=== PATIENT | female | born 1965 | race Caucasian/White ===

== ENCOUNTER → 2019-12-07 13:54 | Outpatient (CLI) | payer BC, SELFPAY ==
--- NOTE | ~2019-12-07 | DEXA_ITS ---
Bone Density Report Name: Janae Meeks Age: 54 Sex: Female Ethnicity: White Date of : 1965 Indication: postmenopausal; screening for osteoporosis; parental hip fracture; Referring Provider: THAI CUENCA Study: Bone densitometry was performed. Exam Date: December 07, 2019 Accession number: [id number] Bone Density: Region BMD T-score Z-score Classification AP Spine (L1-L4) 1.140 0.8 1.9 Normal Femoral Neck (Left) 0.737 -1.0 0.0 Normal Total Hip (Left) 1.022 0.7 1.3 Normal Femoral Neck (Right) 0.746 -0.9 0.1 Normal Total Hip (Right) 1.001 0.5 1.2 Normal Total Hip Mean 1.012 0.6 1.3 Normal World Health Organization criteria for BMD impression classify patients as: Normal (T-score at or above -1.0), Osteopenia (T-score between -1.0 and -2.5), or Osteoporosis (T-score at or below -2.5). 10-year Fracture Risk: FRAX not reported because: All T-scores for Spine Total, Hip Total, Femoral Neck at or above -1.0 Clinical Information Provided by Patient: Parent has had a hip fracture Has used the following medications: Vitamin D, Calcium Patient maximum height was 63 Menopause Age: 49 Does not regularly consume dairy products Drinks caffeinated beverages Onset of menses at age 13 Number of children 1 Impression: The patient has normal bone mass. The patient has risk factors, including: parental hip fracture. Discussion: BONE DENSITY IS ABOVE THE MINIMUM DESIRABLE LEVEL AT ALL SKELETAL SITES TESTED. This patient?s bone mineral density is above the minimum desirable level (T-score -1.0 or better) at all sites measured. The patient should follow a healthful lifestyle (good nutrition with adequate calcium and vitamin D, and appropriate weight-bearing exercise). Follow-Up: Consider repeating this study in 5 years or sooner if there is some new clinical indication. Reported by: CARLINE on 12/07/2019 2:25:00 PM. Reviewed, dictated and finalized at location APricila MENENDEZ
--- NOTE | ~2019-12-07 | MM_ITS ---
EXAMINATION: MM screening robe BI w pilar HISTORY: Screening mammogram TECHNIQUE: Craniocaudal and mediolateral oblique 3-D tomosynthesis images were obtained and synthetic 2-D images were generated. CAD analysis was submitted and interpreted. COMPARISON: Comparison to multiple prior studies sequentially, with oldest reviewed study dated 11/2011. BREAST PARENCHYMAL COMPOSITION: There are scattered areas of fibroglandular density. FINDINGS: There is no evidence of suspicious mass, calcification, or architectural distortion to sugg est malignancy in either breast. There has been no suspicious interval change. IMPRESSION: 1. No mammographic evidence of malignancy. 2. Recommend routine screening mammography in one year. BI-RADS Category 1: Negative Reviewed, dictated and finalized at location A. EM SUPPORT DEVELOPER
== END ==
PROVIDERS: Visit Provider Obstetrics & Gynecology
DX: Z12.31 Encounter for screening mammogram for malignant neoplasm of breast (principal); Z13.820 Encounter for screening for osteoporosis
CPT/HCPCS: 77063; 77067; 77080

== ENCOUNTER → 2020-04-04 07:37 | Outpatient (CLI) | payer BC, SELFPAY ==
--- NOTE | ~2020-04-04 | US_ITS ---
EXAMINATION: US right upper quadrant DATE: 04/04/2020 08:13 INDICATION: Cirrhosis of the liver, bloating TECHNIQUE: Multiple grayscale and Doppler ultrasound images of the abdomen were obtained. COMPARISON: 07/02/2019 FINDINGS: The head and and body of the pancreas are normal. The pancreatic tail is obscured by bowel gas. The liver demonstrates increased echogenicity, heterogenous echotexture, and decreased through t ransmission. No definite liver surface nodularity is identified. Normal hepatopetal flow in the main portal vein. The gallbladder is surgically absent. The normal common bile duct measures 6 mm. IMPRESSION: 1. Diffuse hepatic steatosis. Reviewed, dictated and finalized at location A.
== END ==
DX: K74.60 Unspecified cirrhosis of liver (principal); K76.0 Fatty (change of) liver, not elsewhere classified
CPT/HCPCS: 76705

== ENCOUNTER 2020-11-07 10:22 | Outpatient (RCR) | payer BC, SELFPAY ==
[2020-11-07] MEDS: ACETAMINOPHEN 325 MG TABLET 650 MG PO (13:30)
[2020-11-07] MEDS: diphenhydrAMINE HCl CAP 25 MG CAPSULE PO (13:30)
[2020-11-07] MEDS: FAMOTIDINE 20 MG TABLET PO (13:30)
[2020-11-07 13:39] VITALS: BP 127/65; PULSE 78; RESP 16; TEMP 36.6; O2SAT 100
[2020-11-07 15:45] VITALS: BP 122/72
--- NOTE | 2020-11-08 10:32 | PC.NURSE ---
Patient denies any side effects to her Bamlinivimab treatment. Patient states she feel better.
== END 2020-11-08 09:25 ==
LOC: AMCINF 10:22
PROVIDERS: PCP Family Medicine; Visit Provider Family Medicine
DX: Z23 Encounter for immunization (principal); U07.1 COVID-19; E11.9 Type 2 diabetes mellitus without complications
CPT/HCPCS: A9270; J7050; M0239; Q0239

== ENCOUNTER → 2021-05-23 07:52 | Outpatient (CLI) | payer BC, SELFPAY ==
--- NOTE | ~2021-05-23 | US_ITS ---
EXAMINATION: US right upper quadrant DATE: 05/23/2021 08:12 INDICATION: Cirrhosis of the liver without ascites TECHNIQUE: Multiple grayscale and Doppler ultrasound images of the abdomen were obtained. COMPARISON: 04/04/2020 FINDINGS: The head and body of the pancreas are normal. The pancreatic tail is obscured by bowel gas. The liver demonstrates increased echogenicity, heterogenous echotexture, and decreased through trans mission. No surface nodularity. Normal hepatopetal flow in the main portal vein. The gallbladder is s urgically absent. The normal common bile duct measures 6 mm. There was no sonographic Nam sign. IMPRESSION: 1. Diffuse hepatic steatosis. Reviewed, dictated and finalized at location B.
== END ==
PROVIDERS: PCP Family Medicine
DX: K74.60 Unspecified cirrhosis of liver (principal); K76.0 Fatty (change of) liver, not elsewhere classified
CPT/HCPCS: 76705

== ENCOUNTER 2021-11-18 08:31 | Emergency (ER) | payer BC, SELFPAY ==
--- NOTE | ~2021-11-18 | XR_ITS ---
EXAMINATION: XR ankle LT min 3V DATE: 11/18/2021 09:26 INDICATION: Lateral left ankle pain post fall with twisting ankle injury TECHNIQUE: Anteroposterior, oblique, mortise, and lateral views of the left ankle were obtained. COMPARISON: Left foot radiographs dated 11/18/2021 FINDINGS: There is soft tissue swelling overlying the lateral malleolus with small nondisplaced fracture at the tip of the lateral malleolus. No other fractures identified. Alignment remains anatomic with a congr uent ankle mortise. Joint spaces are normal. Small left ankle joint effusion. IMPRESSION: 1. Small nondisplaced likely avulsion fracture at the tip of the lateral malleolus. Reviewed, dictated and finalized at location A. SIVES SALES REPRESENTATIVE IMPRESSION: 1. Small nondisplaced likely avulsion fracture at the tip of the lateral malleo adry.
--- NOTE | ~2021-11-18 | XR_ITS ---
EXAMINATION: XR foot LT min 3V DATE: 11/18/2021 08:53 INDICATION: Twisting left foot injury with lateral sided bruising TECHNIQUE: Dorsoplantar, two oblique and lateral views of the left foot were obtained. COMPARISON: None. FINDINGS: Thin ossific density along the lateral tip at the lateral malleolus and could not exclude a minimally displaced avulsion fracture fragment. Normal alignment with no evident fractures of the bones in the left foot proper. Joint spaces are relatively preserved. No left ankle joint effusion. IMPRESSION: 1. Cystic density along the lateral tip of the lateral malleolus which could represent an age-indeter minate fracture or heterotopic ossification related to chronic ankle sprain. Correlate for point tend erness at this location and if equivocal could consider dedicated left ankle radiographs for further evaluation. Reviewed, dictated and finalized at location A. ECRAFT SYSTEMS ENGINEER IMPRESSION: 1. Cystic density along the lateral tip of the lateral malleolus which could re present an age-indeterminate fracture or heterotopic ossification related to ch ronic ankle sprain. Correlate for point tenderness at this location and if equi vocal could consider dedicated left ankle radiographs for further evaluation.
[2021-11-18 08:40] VITALS: BP 142/70; PULSE 79; RESP 18; TEMP 35.9; O2SAT 100
--- NOTE | 2021-11-18 09:08 | ED.LOWEXIN ---
HPI - Extremity Injury (Lower) General Chief Complaint: Extremity Injury, Lower Stated Complaint: Left foot Pain Time Seen by Provider: 11/18/21 08:55 Source: patient and RN notes reviewed Mode of arrival: ambulatory Limitations: no limitations History of Present Illness HPI Narrative: Patient presents today complaining of left foot and ankle pain. She fell, twisting her left ankle yesterday and as she fell she sat down on her foot. She currently rates her pain 4/10 and has been taking Tylenol and elevating her foot with some relief. Denies numbness or tingling. Pain increases with weightbearing and movement. MD complaint: foot injury Related Data Home Medications Medication Instructions Recorded Confirmed calcium 1,200 mg PO DAILY 11/07/20 11/18/21 cyanocobalamin-cobamamide [B12] 500 heriberto SUBLINGUAL DAILY 11/07/20 11/18/21 ferrous sulfate 650 mg PO HS 11/07/20 11/18/21 fluoxetine 60 mg PO DAILY 11/07/20 11/18/21 levothyroxine 125 mcg PO DAILY 11/07/20 11/18/21 lisinopril 10 mg PO DAILY 11/07/20 11/18/21 multivitamin 1 tablet PO DAILY 11/07/20 11/18/21 semaglutide [Ozempic] 1 mg SUBCUT WEEKLY 11/07/20 11/18/21 simvastatin 20 mg PO HS 11/07/20 11/18/21 trazodone 25 mg PO HS 11/07/20 11/18/21 Allergies Allergy/AdvReac Type Severity Reaction Status Date / Time clarithromycin AdvReac Mild NAUSEA Verified 11/07/20 13:49 Review of Systems Review of Systems: CONSTITUTIONAL: Denies body aches, fever, chills, or sweats. EYES: Denies visual changes, redness, or discharge. ENT: Denies rhinorrhea, congestion, sore throat, or otalgia. CARDIOVASCULAR: Denies chest pain, palpitations, or edema. RESPIRATORY: Denies cough or dyspnea. GASTROINTESTINAL: Denies abdominal pain, nausea, vomiting, or diarrhea. GENITOURINARY: Denies dysuria or hematuria. SKIN: Denies rash, itching, or wounds. MUSCULOSKELETAL: Denies back pain, or myalgia.+ Left ankle and foot pain NEUROLOGIC: Denies headache, numbness, tingling, or weakness. PSYCH: Denies depression or anxiety. [facility] Past Medical History Medical History (Updated 11/18/21 @ 09:44 by Virgen Esquivel, INTEGRATION AIDE, ) Diabetes High cholesterol Hypertension Hypothyroidism Social History Social History Smoking status: Never smoker Spiritual care concerns: No Comments At time of signature, I have reviewed and agree with nursing past medical, surgical, social and family history unless otherwise noted. Please see nursing chart for further information. There is no relevant family history pertinent to the presenting complaint Exam Narrative: GENERAL: Well-appearing, well-nourished, and in no acute distress. HEAD: Normocephalic, atraumatic. EYES: EOMI. No redness or drainage. Conjunctivae normal. ENT: Mucous membranes pink and moist. NECK: Normal AROM. CHEST: No respiratory distress. EXTREMITIES: Left foot and ankle: Tenderness to the proximal lateral foot and lateral malleolus with mild to moderate edema. Distal sensation intact. Capillary refill normal. Radial pulse normal. Full range of motion of the ankle with mild increased pain. SKIN: Warm, dry, no rash. Capillary refill normal. Normal skin turgor. NEURO: No focal deficits. Alert and oriented x3. Gait steady. PSYCH: Normal affect. No signs of depression or anxiety. Course Course Emergency Course: Patient declines OCL placement. States she will wear an Ubaldo wrap at home if she feels like she needs it. Will call orthopedist consumer lender and make a follow-up appointment. Anticipatory guidance given. Level of Care: Express Care Visit Vital Signs Vital signs: Vital Signs Temperature 96.7 F L 11/18/21 08:40 Pulse Rate 79 11/18/21 08:40 Respiratory Rate 18 11/18/21 08:40 Blood Pressure 142/70 H 11/18/21 08:40 Pulse Oximetry 100 11/18/21 08:40 Temperature 96.7 F L 11/18/21 08:40 Pulse Rate 79 11/18/21 08:40 Respiratory Rate 18 11/18/21 0
== END 2021-11-18 09:57 | disposition home or self-care (01) ==
PROVIDERS: Emergency Provider Nurse Practitioner; PCP Family Medicine
DX: S82.65XA Nondisplaced fracture of lateral malleolus of left fibula, initial encounter for closed fracture (principal); W19.XXXA Unspecified fall, initial encounter; E11.9 Type 2 diabetes mellitus without complications; E78.00 Pure hypercholesterolemia, unspecified; I10 Essential (primary) hypertension; E03.9 Hypothyroidism, unspecified
CPT/HCPCS: 73610; 73630; 99213; G0463

== ENCOUNTER → 2022-04-21 08:09 | Outpatient (CLI) | payer BC, SELFPAY ==
--- NOTE | ~2022-04-21 | US_ITS ---
US right upper quadrant INDICATION: Cirrhosis of the liver. PROCEDURE: Realtime right upper abdominal ultrasound. COMPARISON: Ultrasound dated 05/23/2021 FINDINGS: The pancreas is normal without focal mass or pancreatic ductal dilation. Liver echotexture is increased, consistent with fatty infiltration. No focal hepatic masses are identified. There is normal directional flow in the portal vein. Gallbladder is surgically absent. Common bile duct measures 6 mm. IMPRESSION: 1: Hepatic steatosis. Reviewed, dictated and finalized at location A. IMPRESSION: 1: Hepatic steatosis.
== END ==
PROVIDERS: PCP Family Medicine
DX: K74.60 Unspecified cirrhosis of liver (principal); K76.0 Fatty (change of) liver, not elsewhere classified
CPT/HCPCS: 76705

== ENCOUNTER → 2023-04-10 07:39 | Outpatient (CLI) | payer BC, SELFPAY ==
--- NOTE | ~2023-04-10 | US_ITS ---
Limited Abdominal Sonogram: Real-time sonographic imaging of the right upper quadrant was performed. Clinical History: Liver cirrhosis Findings: The liver appears heterogeneous, with no evidence of mass lesion or bile duct dilatation. Main portal vein demonstrates normal direction of flow. The gallbladder is absent, compatible prior c holecystectomy. The common bile duct measures 4 mm. The visualized pancreas, aorta, and IVC are unre markable. Right kidney measures 10.8 cm in length, without evidence for hydronephrosis. Impression: Heterogeneous hepatic echotexture could reflect fatty infiltration or other chronic liver disease. Status post cholecystectomy. Reviewed, dictated and finalized at location . Impression: Heterogeneous hepatic echotexture could reflect fatty infiltration or other chr onic liver disease. Status post cholecystectomy.
== END ==
PROVIDERS: PCP Family Medicine
DX: K75.81 Nonalcoholic steatohepatitis (NASH) (principal); K74.60 Unspecified cirrhosis of liver; Z90.49 Acquired absence of other specified parts of digestive tract
CPT/HCPCS: 76705

== ENCOUNTER 2024-04-08 07:46 | Outpatient (CLI) | payer BC, SELFPAY ==
--- NOTE | ~2024-04-08 | US_ITS ---
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 TECHNIQUE: Multiple grayscale and Doppler ultrasound images of the abdomen were obtained. COMPARISON: Ultrasound 04/10/2023 FINDINGS: The visualized portions of the head and body and tail of the pancreas are normal. The liver is normal without focal lesion. No liver surface nodularity. The gallbladder is absent. There is nor mal flow in main portal vein. The common duct is normal and measures 6 mm. IMPRESSION: 1. Normal right upper quadrant ultrasound status post cholecystectomy. Reviewed, dictated and finalized at location A.
== END 2024-04-08 07:47 ==
LOC: MICIMG 07:48
PROVIDERS: PCP Family Medicine
DX: K75.81 Nonalcoholic steatohepatitis (NASH) (principal); K74.60 Unspecified cirrhosis of liver; Z90.49 Acquired absence of other specified parts of digestive tract
CPT/HCPCS: 76705

== ENCOUNTER 2024-06-16 10:28 | Outpatient (CLI) | payer BC, SELFPAY ==
--- NOTE | ~2024-06-16 | MM_ITS ---
EXAMINATION: MM screening robe BI w pilar HISTORY: Screening TECHNIQUE: Craniocaudal and mediolateral oblique 3-D tomosynthesis images were obtained and synthetic 2-D images were generated. CAD analysis was submitted and interpreted. COMPARISON: Comparison to multiple prior studies sequentially, with oldest reviewed study dated 12/07. BREAST PARENCHYMAL COMPOSITION: Not dense: There are scattered areas of fibroglandular density. FINDINGS: There is no evidence of suspicious mass, calcification, or architectural distortion to sugg est malignancy in either breast. There has been no suspicious interval change. IMPRESSION: 1. No mammographic evidence of malignancy. 2. Recommend routine screening mammography in one year. BI-RADS Category 1: Negative Reviewed, dictated and finalized at location B.
== END 2024-06-16 10:29 | disposition home or self-care (01) ==
PROVIDERS: PCP Family Medicine; Visit Provider Advanced Practice Midwife
DX: Z12.31 Encounter for screening mammogram for malignant neoplasm of breast (principal); Z78.0 Asymptomatic menopausal state
CPT/HCPCS: 77063; 77067

== ENCOUNTER 2024-12-26 11:56 | Outpatient (CLI) | payer OTHER, SELFPAY ==
--- NOTE | ~2024-12-26 | XR_ITS ---
XR hip RT min 2V Ordering provider: Jackson Camacho MD History: . M25.551 - Pain in right hip . Comparison: None. FINDINGS: BONES: No acute fracture or dislocation. HIP JOINT SPACES: Normal. SACROILIAC JOINT SPACES/LUMBAR SPINE: The sacroiliac joint spaces are normal. Normal visualized lower lumbar spine. PUBIC SYMPHYSIS: Normal. SOFT TISSUES: Normal. IMPRESSION: No acute osseous abnormality pelvis and right hip. Reviewed, dictated and finalized at location A.
== END 2024-12-26 11:57 | disposition home or self-care (01) ==
LOC: MICIMG 11:59
PROVIDERS: PCP Family Medicine; Visit Provider Family Medicine
DX: M25.551 Pain in right hip (principal)
CPT/HCPCS: 73502

== ENCOUNTER 2025-04-23 15:03 | Emergency (ER) | payer OTHER, SELFPAY ==
--- NOTE | ~2025-04-23 | XR_ITS ---
XR elbow RT min 3V Ordering provider: Alexandru Napoles MD History: . trauma . Comparison: None FINDINGS: BONES: Possible fracture in the radial head. JOINT SPACES: Normal. SOFT TISSUES: Elevation of the anterior fat pad is seen. No definite joint effusion. IMPRESSION: Possible fracture in the radial head as seen in the lateral view. Follow-up advised. Reviewed, dictated and finalized at location A. IMPRESSION: Possible fracture in the radial head as seen in the lateral view. Follow-up adv ised.
--- NOTE | ~2025-04-23 | XR_ITS ---
XR foot LT min 3V Ordering provider: Alexandru Napoles MD History: . trauma . Comparison: None. FINDINGS: BONES: Chip fracture at the base of the middle phalanx of the little toe. No other fractures seen. JOINT SPACES: Normal. No tarsal coalition. SOFT TISSUES: Normal. IMPRESSION: Chip fracture at the base of the middle phalanx of the left little toe. Reviewed, dictated and finalized at location A.
--- NOTE | ~2025-04-23 | XR_ITS ---
XR knee LT 3V Ordering provider: Alexandru Napoles MD History: . trauma . Comparison: None. FINDINGS: BONES: No acute fracture or dislocation. JOINT SPACES: Marginal osteophytes are seen in the knee and patella. Narrowing of the medial compartm ent is noted. Chondrocalcinosis seen in the lateral meniscus. SOFT TISSUES: Normal. IMPRESSION: No acute osseous abnormality left knee. Moderate osteoarthritic changes. Chondrocalcinosis. Reviewed, dictated and finalized at location A.
[2025-04-23 15:04] VITALS: BP 129/63; PULSE 69; RESP 16; TEMP 36.6; O2SAT 100
--- OUTSIDE RECORDS SUMMARY | 2025-04-23 15:06 | XMS_ITS | Encounter Summary ---
Author Organization [facility] Address [address] [address] Care Team Providers Care Materials Technician Name Role Phone Jackson Camacho MD Primary Care Provider [phone] Encounter Details Date Type Department Care Team (Late Contact Info) Description 04/04/2020 Lab Requisition [facility] [address] [place] [address] Elisa Saeed, [address] [facility] [address] DEPT OF D[place]MAT[place] [address] Social History Tobacco Use Types Packs/Day Years Used Date Smoking Tobacco: Never Smokeless Tobacco: Never Alcohol Use Standard Drinks/Week Comments No 0 (1 standard drink = 0.6 oz pur e alcohol) Comments No Sex and Gender Information Value Date Recorded Sex Assigned at Not on file 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 Gender Identity Not on file Sexual Orientation Not on file documented as of this encounter Plan of Treatment Upcoming Encounters Date Type Department Care Team (Late Contact Info) Description 04/24/2025 8:30 AM CDT Procedure visit [facility] [address] [place] [phone] 04/24/2025 9:00 AM CDT Office Visit [facility] [address] [place] [phone] Bess Hays, MICROFILM EQUIPMENT INSPECTOR-DIRECTOR OF SECURITY [address] [facility] [address] DIV OF GASTROENTEROLOG[place] [phone] documented as of this encounter Procedures Procedure Name Priority Date/Time Associated Diagnosis Comments DERMATOPATHOLOGY Routine 04/03/2020 12:0 0 AM CDT documented in this encounter Results * DERMATOPATHOLOGY (04/03/2020 12:00 AM CDT) Case Report Dermatopathology Report Case: [id number] Authorizing Provider: Elisa Saeed DO Collected: 04/03/2020 12:00 AM Ordering Location: [facility] Received: 04/04/2020 06:50 AM Pathologist: Gloria Leigh MD Specimen: Skin, right anterior LE 0 1:38 PM CDT DERMATOPATHOLOGY LABORATORY Final Diagnosis Specimen A. SKIN, right anterior LE: BENIGN VERRUCOUS KERATOSIS (L82.1) 0 1:38 PM CDT DERMATOPATHOLOGY LABORATORY at 1338 CDT Clinical History R/O BCC 0 1:38 PM CDT DERMATOPATHOLOGY LABORATORY Gross Description Specimen A: Received is one formalin filled container labeled with the patient's name and designated right anterior LE. The specimen consists of a shave biopsy measuring 6x5x1 mm. Jar 0. 0 1:38 PM CDT DERMATOPATHOLOGY LABORATORY Microscopic Description Specimen A. SKIN, right anterior LE: Sections show hyperkeratosis, papillomatosis, hypergranulosis, and acanthosis. These histological findings can be seen in a verruca vulgaris or a seborrheic keratosis. 0 1:38 PM CDT DERMATOPATHOLOGY LABORATORY Disclaimer An external and internal positive and negative controls are appropriate for the histochemical, immunohistochemical and immunofluorescence stain(s) in this case (if any), except where stated explicitly. The performance characteristics of the stain(s) cited in this report were developed and its performance characteristic determined by the Dermatopathology Laboratory at [facility], directed by Dr. Rafael Leigh. These tests need not be, and therefore are not, approved by the [place] Food and Drug Administration. The tests are used for clinical purposes. Billing Codes Specimen Charges Stain Charges 94318 1 0 1:38 PM CDT DERMATOPATHOLOGY LABORATORY Embedded Images 0 1:38 PM CDT DERMATOPATHOLOGY LABORATORY Pathology/Cytolog y TISSUE SPECIMEN FROM SKIN / Unknown 04/03/2020 04/04/2020 6:50 AM CDT us Elisa Saeed DO LAB - PATHOLOGY/CYTOLOGY ORDERABLES Final Result Performing Organization Address City/State/[facility] Co de Phone Number DERMATOPATHOLOGY LABORATORY [facility] - Department of Dermatology [employer]/[address] [phone] documented in this encounter Visit Diagnoses Not on filedocumented in this encounter Care Teams Materials Technician Relationship Specialty Start Date End Date Jackson Camacho MD PCP - General 05/31/13 documented as of this encounter
--- OUTSIDE RECORDS SUMMARY | 2025-04-23 15:06 | XMS_ITS | Clinical Summary ---
Author Organization [facility] Address [address] [place] [address] Care Team Providers Care Dust Collector Name Role Phone Jackson Camacho MD Primary Care Provider [phone] Source Comments [facility],non-owned Affiliates and Associated Physician Practices is amultiple site organization consisting of ambulatory clinics and hospital sitesin [place], [place], [place] and [place]. This disclosure is being madepursuant to the Care Everywhere program and may not contain all information available regarding this patient. Last updated 18.[facility] Allergies No known active allergies Medications * Be aware that medications may not be up to date on this document. Alwaysverify current medications with the patient. lisinopril (PRINIVIL; ZESTRIL) 10 MG tablet 1 (one) tablet once daily 9 Active simvastatin (ZOCOR) 40 MG tablet 1 (one) tablet once daily 9 Active metFORMIN (GLUCOPHAGE) 1000 MG tablet 0.5 (one-half) tablet 2 times daily 9 Active FLUoxetine (PROZAC) 20 MG capsule 1 (one) capsule once daily 40 and 20 9 Active levothyroxine (SYNTHROID) 125 MCG tablet 1 (one) tablet once daily 9 Active OZEMPIC, 1 MG/DOSE, 2 MG/1.5ML pen Inject 1 (one) mg subcutaneously every 7 days 1 Active calcium carbonate (Calcium 600) 600 MG tablet Take 2 (two) tablets by mouth daily with food Active FLUoxetine (PROzac) 40 MG capsule Take 1 (one) capsule by mouth once daily 3 Active cyanocobalamin (Vitamin B-12) 1000 MCG tablet Take 1 (one) tablet by mouth once daily Active Active Problems Problem Noted Date Diagnosed Date 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 Christie at [facility]): normal esophagus, paraesophageal hernia. 05/19/13 liver biopsy (intraop at [facility] for nodular liver): steatohepatitis with cirrhosis 08/11/13 US ([facility]): no focal lesions, patent vessels 11/02/14 US ([facility]): steatosis, no nodularity, patent vessels US 12/27/2016- cirrhosis without lesion 12/19/2017- US-diffuse hepatic steatosis, no liver nodularity 03/27/21 Fibroscan CAP 322, LSM 8.4 kPa 04/22/24 Fibroscan CAP 268, LSM 10.3 kPa Major depressive disorder, single episode 2012 Pure hypercholesterolemia 08/05/2013 Obesity 08/05/2013 Overview (01/11/2018): 05/19/13: Sleeve gastrectomy at [facility] Hypothyroidism 08/05/2013 Overview (01/11/2018): Since 1984 Gastro-esophageal reflux disease without esophag itis 08/05/2013 Type 2 diabetes mellitus without complications 1 Overview (01/11/2025): Diagnosed at age 38 IMO 01/11/2025 Essential (primary) hypertension 08/05/2013 Depression 08/05/2013 Family History Medical History Relation Name Comments Cancer - Other Father 79 myloma Hypertension Father 79 Status: Alive Hypertension Mother 80 Status: Alive Relation Name Status Comments Brother 54 Alive Daughter 26 Alive Father 79 Alive Maternal Grandfather Maternal Grandmother Mother 80 Alive Paternal Grandfather Paternal Grandmother Social History Tobacco Use Types Packs/Day Years Used Date Smoking Tobacco: Never Smokeless Tobacco: Never Tobacco Cessation:Counseling Given: Not Answered Alcohol Use Standard Drinks/Week Comments No 0 (1 standard drink = 0.6 oz pur e alcohol) Comments No Sex and Gender Information Value Date Recorded Sex Assigned at Not on file Legal Sex Female 5:42 PM MANAGER PROVIDER RELATIONS Gender Identity Not on file Sexual Orientation Not on file Last Filed Vital Signs Vital Sign Reading Time Taken Comments Blood Pressure 138/72 04/22/2024 8:08 AM CDT Pulse 62 04/22/2024 8:08 AM CDT Temperature 36.5 C (97.7 F) 04/22/2024 8:08 AM CDT Respiratory Rate 20 04/25/2022 12:26 PM CDT Oxygen Saturation 100% 04/22/2024 8:08 AM CDT Inhaled Oxygen Concentration - - Weight 95.7 kg (211 lb) 04/22/2024 8:08 AM CDT Height 157.5 cm (5' 2) 04/22/2024 8:08 AM CDT Body Mass Index 38.59 04/22/2024 8:08 AM CDT Plan of Treatment Upcoming Encounters Date Type Department Care Team (Late st Contact Info) Description 04/24/2025 8:30 AM CDT Procedure visit [facility] [address] [place] [address] [phone] 04/24/2025 9:00 AM CDT Office Visit [facility] [address] [place] [address] [phone] Bess Hays M, ULTRASOUND TECHNOLOGIST SONOGRAPHER-MRI SPECIAL PROCEDURES TECHNOLOGIST [address] [place] [address] [place] [address] Health Maintenance Due Date Last Done Comments COLOGUARD (AGES 45-75) - COLON CA SCREENING 1965 COLON MONITORING 1965 COLONOSCOPY - COLON CA SCREENING 1965 CT COLONOGRAPHY - COLON CA SCREENING 1965 Colorectal Cancer Screening 1965 FIT - COLON CA SCREENING 1965 FLEX SIG - COLON CA SCREENING 1965 MAMMOGRAM 1965 HIV SCREENING 01/18/1980 HEPATITIS C SCREENING 01/13/1983 DTAP/TDAP/TD VACCINES (1 - Tdap) 01/18/1984 PNEUMOCOCCAL VACCINE 50+ (1 of 2 - PCV) 01/18/1984 PAP SMEAR 1986 ZOSTER VACCINE (1 of 2) 2015 DIABETES RETINOPATHY SCREENING 01/11/2018 DIABETES-FOOT EXAM WITH MONOFILAMENT 01/11/2018 DIABETES-HGB A1C 09/14/2022 03/15/2022, 11/16/2021 COVID-19 VACCINE (1 - 2023- season) 2024 DEPRESSION SCREENING 10/12/2024 DIABETES - URINE PROTEIN SCREENING 10/12/2024 HEPATITIS B VACCINE (1 of 3 - Risk 3-dose series) 2025 Respiratory Syncytial Virus (RSV) Vaccine Pt: or over 60 yrs (1 - Risk 60-74 years 1-dose series) 2025 DIABETES-SERUM CREATININE 04/19/20252023, 03/15/2022, 11/16/2021, Additional history exists INFLUENZA VACCINE (#1) 2025 HIB VACCINE Aged Out No longer eligi ble based on patient's age to complete this topic HPV VACCINE Aged Out No longer eligi ble based on patient's age to complete this topic MENINGOCOCCAL (Group B) VACCINE SHARED DECISION-MAKING Aged Out No longer eligible based on patient's age to complete this topic MENINGOCOCCAL GROUPS A/C/Y/W VACCINE Aged Out No longer eligible based on patient's age to complete this topic Goals Goal Patient Goal Type Associated Problems Recent Progress Patient-Stated? Author Medication Management General Luz Mackey, RN Note: Expected end date: ongoing Interventions: Take all medications as prescribed Let your doctor know right away about any changes in your medications Make sure to request a refill of your medication at least one week prior to your last dose Procedures Procedure Name Priority Date/Time Associated Diagnosis Comments COMPREHENSIVE METABOLIC PANEL 04/19/2024 7:10 AM CDT HEMOGLOBIN A1C (EXTERNAL RESULT ENTRY) Routine 03/15/2022 from Last 3 Months or Most Recently Relevant to Health Maintenance Results * (ABNORMAL) COMPREHENSIVE METABOLIC PANEL (04/19/2024 7:10 AM CDT) Glucose 108(H) 70 - 99 mg/dL [facility] INSURANCE BILL BUN 14 6 - 24 mg/dL [facility] INSURANCE BILL Creatinine 0.87 0.57 - 1.00 mg/dL [facility] INSURANCE BILL eGFR by CKD-EPI 77 >59 mL/min/1.7 3 [facility] INSURANCE BILL BUN/Creatinine Ratio 16 9 - 23 [facility] INSURANCE BILL Sodium 140 134 - 144 mmol/L [facility] INSURANCE BILL Potassium 4.7 3.5 - 5.2 mmol/L [facility] INSURANCE BILL Chloride 102 96 - 106 mmol/L [facility] INSURANCE BILL CO2 22 20 - 29 mmol/L [facility] INSURANCE BILL Calcium 9.6 8.7 - 10.2 mg/dL [facility] INSURANCE BILL Protein Total 6.5 6.0 - 8.5 g/dL [facility] INSURANCE BILL Albumin 4.1 3.8 - 4.9 g/dL [facility] INSURANCE BILL Globulin Total 2.4 1.5 - 4.5 g/dL [facility] INSURANCE BILL Bilirubin Total 0.4 0.0 - 1.2 mg/dL [facility] INSURANCE BILL Alkaline Phosphatase 50 44 - 121 IU/L [facility] INSURANCE BILL AST 36 0 - 40 IU/L [facility] INSURANCE BILL ALT 29 0 - 32 IU/L [facility] INSURANCE BILL Comment:FASTING 04/19/2024 7:10 AM CDT 04/19/2024 Narrative Resulting Agency Comment [facility] [address] [phone] Bess Hays ULTRASOUND TECHNOLOGIST SONOGRAPHER-MRI SPECIAL PROCEDURES TECHNOLOGIST LAB - CHEMISTRY BERT WHITAKER Final Result [facility] INSURANCE BILL [address] [place] [address] * (ABNORMAL) HEMOGLOBIN A1C (EXTERNAL RESULT ENTRY) (03/15/2022) Hemoglobin A1c (EXTERNAL RESULT) 5.8(H) % Blood BLOOD SPECIMEN / Unknown 03/15/2022 Historical Provider LAB - CHEMISTRY ORDERABLE S Final Result from Last 3 Months or Most Recently Relevant to Health Maintenance Care Teams Dust Collector Relationship Specialty Start Date End Date Jackson Camacho MD PCP - General 05/31/13
[2025-04-23 16:32] VITALS: BP 112/60; PULSE 74; RESP 16; TEMP 36.4; O2SAT 100
--- NOTE | 2025-04-23 17:34 | ED.FALL ---
HPI - Fall General Chief Complaint: Fall Stated Complaint: fall, L leg R arm injuries Time Seen by Provider: 04/23/25 15:10 History of Present Illness HPI Narrative: Patient is a 60-year-old female who presents ER after a fall yesterday. She is walking on the steps of pulled she slipped on the step. She caught herself on a railing injuring her right elbow and then also got her left leg caught behind her back. She cannot bear weight on her knee due to pain on that left side. She has bruising of her toes on left foot. No fevers chills or sweats. Related Data Home Medications ?Medication ?Instructions ?Recorded ?Confirmed ?Last Taken ?Type calcium 600 mg capsule 1,200 mg PO DAILY 11/07/20 12/26/24 Unknown History cyanocobalamin (B12)-cobamamide 500 heriberto sublingual DAILY 11/07/20 12/26/24 Unknown History 5,000 mcg-100 mcg sublingual lozenge (B12) ferrous sulfate 325 mg (65 mg 650 mg PO HS 11/07/20 12/26/24 Unknown History iron) capsule,extended release multivitamin 1 tablet PO DAILY 11/07/20 12/26/24 Unknown History Allergies Allergy/AdvReac Type Severity Reaction Status Date / Time clarithromycin AdvReac Mild NAUSEA Verified 04/23/25 16:35 [facility] Past Medical History Medical History Metabolic dysfunction-associated steatotic liver disease (MASLD) Unspecified cirrhosis of liver Vitamin D deficiency, unspecified Major depressive disorder, recurrent, in partial remission History of COVID-19 High cholesterol Hypertension Hypothyroidism Diabetes Social History Social History Smoking status: Never smoker Second hand tobacco smoke exposure: No Alcohol intake: never Substance use: never Substance use type: does not use Lack of Transportation: No Lack of Food: Never True Current Housing: I Have Housing Concerned About Future Housing: No Difficulty Paying Gas/Electric Bills: No Difficulty Paying for Meds: No Currently Unemployed: No Education: Trade/Vocational Certificate Difficulty w/ Childcare or Family Care: No Living arrangements: with family Occupation/Education: occupation Gender identity (if verbalized by the patient): Female Sexual Orientation (if Verbalized by the Patient): Straight or Heterosexual Spiritual care concerns: No Exam Narrative: GENERAL: Well-appearing, well-nourished, and in no acute distress. HEAD: Normocephalic, atraumatic. ENT: Mucous membranes moist. NECK: Supple. CHEST: Clear to auscultation. No respiratory distress. HEART: Regular rate and rhythm. Normal peripheral pulses. EXTREMITIES: Right upper extremity with tenderness over the biceps tendon and radial head with normal range of motion. Left lower extremity with limited knee flexion due to pain without significant joint line tenderness. She does have discomfort in the posterior aspect of the distal thigh. Hamstrings seem to be intact. Left foot with bruising at the MTP of 3 through 5. Most notably at the 5th digit there is some bruising on that left foot. SKIN: Warm, dry, no rash. NEURO: Alert and oriented x3. PSYCH: Normal mood and affect. Course Course Emergency Course: Patient informed of imaging results. She has received crutch training and immobilization of her knee. Follow-up with orthopedic surgery. She does not wish to have any pain medication. Vital Signs Vital signs: Vital Signs Temperature 97.8 F 04/23/25 15:04 Pulse Rate 69 04/23/25 15:04 Respiratory Rate 16 04/23/25 15:04 Blood Pressure 129/63 04/23/25 15:04 Pulse Oximetry 100 04/23/25 15:04 Oxygen Delivery Room Air 04/23/25 15:04 Temperature 97.6 F 04/23/25 16:32 Pulse Rate 74 04/23/25 16:32 Respiratory Rate 16 04/23/25 16:32 Blood Pressure 112/60 04/23/25 16:32 Pulse Oximetry 100 04/23/25 16:32 Oxygen Delivery Room Air 04/23/25 16:32 MDM - Fall Imaging Data Radiologist's impression: ITS Impressions Elbow X-Ray 04/23/25 17:03 IMPRESSION: Possible fracture in the radial head as seen in the lateral view. Follow-up advised. Foot X-Ray 04/23/25 17:06 IMPRESSION: Chip fracture at the base of the middle phalanx of the left little toe. Knee X-Ray 04/23/25 17:09 IMPRESSION: No acute osseous abnormality left knee. Moderate osteoarthritic changes. Chondrocalcinosis. Discharge Plan Discharge Clinical Impression: Closed fracture of radial head, Injury of knee, Fracture of toe Patient Disposition: Home Condition: Stable Instructions: Toe Fracture (ED), Elbow Fracture (ED), Knee Pain (ED), Knee Immobilizer (ED) Additional Instructions: Follow-up with orthopedic surgery for further treatment and evaluation. He may require MRI of your knee for further assessment of why you have difficulty bearing weight. Take Tylenol and ibuprofen for pain. Elevate your extremities that are injured Patient Language: Belarusian Prescriptions: No Action multivitamin Tablet 1 tablet PO DAILY calcium 600 mg Capsule 1,200 mg PO DAILY ferrous sulfate 325 mg (65 mg iron) Capsule, Extended Release 650 mg PO HS B12 5,000-100 mcg Lozenge 500 heriberto SUBLINGUAL DAILY levothyroxine [Levoxyl] 112 mcg tablet 112 mcg PO DAILY Qty: 90 3RF Ozempic 2 mg/dose (8 mg/3 mL) pen injector 2 mg subcut WEEKLY Qty: 9 3RF lisinopril 10 mg tablet See Rx Instructions .ROUTE .COMPLEX Qty: 90 1RF Dose Instruction: TAKE 1 TABLET BY MOUTH EVERY DAY Rx Instructions: TAKE 1 TABLET BY MOUTH EVERY DAY simvastatin 40 mg tablet See Rx Instructions .ROUTE .COMPLEX Qty: 90 1RF Dose Instruction: TAKE 1 TABLET BY MOUTH EVERY DAY IN THE EVENING Rx Instructions: TAKE 1 TABLET BY MOUTH EVERY DAY IN THE EVENING fluoxetine 40 mg capsule 40 mg PO DAILY Qty: 90 1RF metformin 1,000 mg tablet See Rx Instructions .ROUTE .COMPLEX Qty: 180 1RF Dose Instruction: TAKE 1 TABLET BY MOUTH TWICE A DAY WITH MORNING AND EVENING MEALS Rx Instructions: TAKE 1 TABLET BY MOUTH TWICE A DAY WITH MORNING AND EVENING MEALS Follow-up/Referrals: Jackson Camacho MD [Primary Care Provider] - 1 Week Prabhjot Mack MD [Physician] - 1 Week
[2025-04-23 18:15] VITALS: BP 157/77; PULSE 74; RESP 16; TEMP 36.4; O2SAT 100
== END 2025-04-23 18:15 | disposition home or self-care (01) ==
PROVIDERS: Emergency Provider Emergency Medicine; PCP Family Medicine
DX: S52.121A Displaced fracture of head of right radius, initial encounter for closed fracture (principal); S92.522A Displaced fracture of middle phalanx of left lesser toe(s), initial encounter for closed fracture; S89.92XA Unspecified injury of left lower leg, initial encounter; W19.XXXA Unspecified fall, initial encounter; E55.9 Vitamin D deficiency, unspecified; F33.41 Major depressive disorder, recurrent, in partial remission; E03.9 Hypothyroidism, unspecified; E11.9 Type 2 diabetes mellitus without complications
CPT/HCPCS: 73080; 73562; 73630; 99284; A4565

== ENCOUNTER 2025-09-27 07:07 | Outpatient (CLI) | payer OTHER, SELFPAY ==
--- NOTE | ~2025-09-27 | MM_ITS ---
EXAMINATION: MM screening robe BI w pilar HISTORY: Screening TECHNIQUE: Craniocaudal and mediolateral oblique 3-D tomosynthesis images were obtained and synthetic 2-D images were generated. CAD analysis was submitted and interpreted. COMPARISON: Comparison to multiple prior studies sequentially, with oldest reviewed study dated , 05/13/2012 BREAST PARENCHYMAL COMPOSITION: Not Dense: There are scattered areas of fibroglandular density. FINDINGS: There is no evidence of suspicious mass, calcification, or architectural distortion to suggest malignancy in either breast. IMPRESSION: 1. No mammographic evidence of malignancy. 2. Recommend routine screening mammography in one year. BI-RADS Category 1: Negative Reviewed, dictated and finalized at location A. NDSKEEPER PORTER
--- NOTE | ~2025-09-27 | DEXA_ITS ---
Bone Density Report Name: JOVANI COLLINS Age: 60 Sex: Female Ethnicity: White Date of : 1965 Indication: postmenopausal; screening for osteoporosis; parental hip fracture; prior fracture; Referring Provider: COLE PELLETIER Study: Bone densitometry was performed. Exam Date: September 27, 2025 Accession number: [id number] Bone Density: Region BMD T-score Z-score Classification AP Spine(L1-L4) 1.088 0.4 1.8 Normal Femoral Neck (Left) 0.573 -2.5 -1.2 Osteoporosis Total Hip (Left) 0.944 0.0 1.0 Normal Femoral Neck (Right) 0.658 -1.7 -0.4 Osteopenia Total Hip (Right) 0.911 -0.3 0.7 Normal Total Hip Mean 0.928 -0.2 0.9 Normal World Health Organization criteria for BMD impression classify patients as: Normal (T-score at or above -1.0), Osteopenia (T-score between -1.0 and -2.5), or Osteoporosis (T-score at or below -2.5). 10-year Fracture Risk: FRAX not reported because: Some T-score for Spine Total or Hip Total or Femoral Neck at or below -2.5 Clinical Information Provided by Patient: Has had a low trauma fracture Parent has had a hip fracture Has used the following medications: Vitamin D Patient maximum height was 63 Menopause Age: 49 Drinks caffeinated beverages Onset of menses at age 13 Number of children 1 Impression: The patient has established osteoporosis, based on the Left Femoral Neck T-score and the existence of a prior fracture. The patient has risk factors, including: parental hip fracture, previous fracture. Discussion: HIGH RISK OF FRACTURE. BONE DENSITY IS UNDESIRABLY LOW AT ONE OR MORE SKELETAL SITES, CONSISTENT WITH POSTMENOPAUSAL OSTEOPOROSIS. This patient's lowest T-score, in a patient who has previously fractured, meets the World Health Organization's (WHO) criteria for severe osteoporosis. In untreated patients, the risk of osteoporotic fracture increases approximately two-fold for each 1.0 SD decrease in T-score. Low bone density is not the only risk factor for fracture; also consider factors such as patient's age, frailty or poor health, risk of falling, risk of injury, previous osteoporotic fracture, family history of osteoporosis, cigarette smoking, low body weight, etc. Not everyone with low bone mineral density has osteoporosis; osteomalacia and other metabolic bone disorders should also be considered. Patients who have osteoporosis should be evaluated for specific diseases and conditions (secondary causes) that may cause or contribute to bone loss. The [place] Association of Clinical Endocrinologists (AACE) and National Osteoporosis Foundation (NOF) recommend pharmacologic intervention for all postmenopausal women whose T-score is in this range. The patient should follow a healthful lifestyle (good nutrition with adequate calcium and vitamin D, and appropriate weight-bearing exercise). Follow-Up: Consider a repeat BMD and Vertebral Fracture Assessment (VFA) exam in 2 years or sooner if medically necessary, to reassess this patient's status. Reported by: MIKAYLA on 09/27/2025 7:33:00 AM. Reviewed, dictated and finalized at location A.
== END 2025-09-27 07:08 | disposition home or self-care (01) ==
LOC: MICIMG 07:10
PROVIDERS: PCP Family Medicine; Visit Provider Obstetrics & Gynecology Gynecology
DX: Z12.31 Encounter for screening mammogram for malignant neoplasm of breast (principal); M81.0 Age-related osteoporosis without current pathological fracture; M85.88 Other specified disorders of bone density and structure, other site; Z78.0 Asymptomatic menopausal state; Z13.820 Encounter for screening for osteoporosis
CPT/HCPCS: 77063; 77067; 77080